=== PATIENT | female | born 1945 | race Caucasian/White ===

== ENCOUNTER 2021-01-01 10:38 | Outpatient (CLI) | payer MEDICARE, SELFPAY ==
--- NOTE | 2021-01-01 09:15 | DI.RAD_ITS ---
Exam(s) XR HIP LT COMPLETE AP PELVIS EXAM: XR HIP LT COMPLETE AP PELVIS CLINICAL HISTORY: left hip pain. TECHNIQUE: 2D digital imaging was performed. COMPARISON: No exams were available for comparison FINDINGS: BONES: No acute fracture is present. No bony destructive lesion is seen. JOINTS: No dislocation present. Degenerative changes are seen at the sacroiliac joints. There is mi ld narrowing of the joint space of the left hip. Marked degenerative changes are seen in the lower l umbar spine with disc space narrowing, osteophytes and vacuum discs. SOFT TISSUE: Atherosclerosis. IMPRESSION: 1. Mild narrowing of the hip joints bilaterally. 2. Marked degenerative changes in the lumbar spine. DATA REPOSITORY: RADIATION DOSE DELIVERED:
== END 2021-01-01 10:39 | disposition home or self-care (01) ==
LOC: DIORS 10:38
PROVIDERS: PCP Family Medicine; Referring Provider Family Medicine; Visit Provider Student in an Organized Health Care Education/Training Program
DX: M25.552 Pain in left hip (principal); M70.62 Trochanteric bursitis, left hip; M16.12 Unilateral primary osteoarthritis, left hip
CPT/HCPCS: 20610; 99203; 73502; J1040

== ENCOUNTER → 2021-02-18 01:38 | Outpatient (CLI) | payer MEDICARE, SELFPAY ==
--- NOTE | 2021-02-18 08:15 | DI.RAD_ITS ---
Exam(s) RF JOINT INJECTION FLUORO GUID EXAM: RF JOINT INJECTION FLUORO GUID CLINICAL HISTORY: l hip inj under fluoro,degenerative joint disease,m16.12,m70.62,lt TECHNIQUE: 2D and realtime digital imaging was performed. CONTRAST MATERIAL: Water soluble contrast was administered. COMPARISON: No exams were available for comparison FINDINGS: Fluoroscopy was provided for Dr. Early during the performance of a left hip injection. Please re landen to the procedure report for complete details. RADIATION DOSE DELIVERED: winnie Gunderson=11.5 mGy
[2021-02-18] MEDS: Bupivacaine 0.5% Pres-Free 10 ML VIAL 50 ML IJ (14:59)
[2021-02-18] MEDS: Omnipaque 300 MG/ML 10 ML BTL IJ (14:59)
[2021-02-18] MEDS: methylPREDNISolone ACETATE 80 MG/ML VIAL IM (15:01)
--- NOTE | 2021-02-18 16:06 | W.PROCNOTE ---
Date of service: 02/18/21 Time of Service: 13:22 Procedure Note Date of procedure: 02/18/21 Procedure: Left Hip Injection Surgeon/Proceduralist/Physician: Carlos Early Procedure Diagnosis: Left Hip Osteoarthritis Procedure Indications: Martha has had persistent pain of the LEFT hip and groin. Noninvasive measures have been tried. To serve as both diagnostic and therapeutic, an injection under fluoroscopy was recommended. I had discussed the risks of the procedure and the patient elected to proceed. Procedure Description: Martha was greeted in the flouroscopy room. The correct side was identified and the consent was reviewed with the patient and signed. The patient was then placed in the supine position on the fluoroscopy table. The LEFT hip was then prepped with Chloraprep. The anterolateral injection starting point was identiifed by bony landmarks and fluoroscopy. The skin and soft tissue in the tract of the injection was anesthetized with 1% Lidocaine. A spinal needle was then inserted deep into the hip joint at the level of the lateral femoral neck under fluoroscopic guidance. A small amount of Omnipaque solution was injected to confirm intraarticular placement. Once confirmed, the hip was injected with 6cc of 0.5% Bupivicaine and 80mg of Depo-Medrol. A bandaid was placed on the injection site. The patient tolerated the procedure well and noted improvement in pre-injection pain.
== END ==
PROVIDERS: PCP Family Medicine; Visit Provider Student in an Organized Health Care Education/Training Program
DX: M16.12 Unilateral primary osteoarthritis, left hip (principal); M25.552 Pain in left hip; R10.32 Left lower quadrant pain
CPT/HCPCS: 20610; 77002; J1040

== ENCOUNTER → 2021-04-05 01:24 | Outpatient (CLI) | payer MEDICARE, SELFPAY ==
--- NOTE | 2021-04-05 06:45 | DI.MRI_ITS ---
Exam(s) MR LOWER JOINT LT WO EXAM: MR LOWER JOINT LT WO CLINICAL HISTORY: PAIN,djd lt hip,trochanteric bursitis,m16.12,m70.72 TECHNIQUE: Multiplanar multisequence MRI of Pelvis was performed COMPARISON: CR XR HIP LT COMPLETE AP PELVIS from 01/01/2021 FINDINGS: Bones: There is no fracture or contusion pattern. No bone marrow edema is seen. Joints: Small normal quantity of joint fluid bilaterally. The SI joints and symphysis pubis are well maintained. Musculotendinous structures: Fluid around the gluteus medius tendon. Fluid superior to the greater t rochanter. Small full collection lateral to the left acetabulum, measuring 8 x 14 millimeters. Severe degenerative disc changes L4-5 and L5-S1. Sigmoid diverticulosis. Bladder, uterus and ovaries unremarkable. IMPRESSION: Partial tear versus tendinitis of the gluteus medius. Trochanteric bursitis. Additional fluid colle ction lateral to the acetabulum. DATA REPOSITORY:
== END ==
PROVIDERS: PCP Family Medicine; Visit Provider Student in an Organized Health Care Education/Training Program
DX: M16.12 Unilateral primary osteoarthritis, left hip (principal); M70.62 Trochanteric bursitis, left hip
CPT/HCPCS: 73721

== ENCOUNTER → 2021-04-21 14:57 | Outpatient (BNVA) | payer MEDICARE, SELFPAY | PROVIDERS: PCP Family Medicine; Referring Provider Family Medicine; Visit Provider Student in an Organized Health Care Education/Training Program | DX: M70.62 Trochanteric bursitis, left hip (principal); S76.012D Strain of muscle, fascia and tendon of left hip, subsequent encounter; X58.XXXD Exposure to other specified factors, subsequent encounter; M16.12 Unilateral primary osteoarthritis, left hip | CPT/HCPCS: 99214 ==

== ENCOUNTER 2021-05-26 02:58 | Outpatient (CLI) | payer MEDICARE, SELFPAY ==
[2021-05-26 11:46] LABS: Source Nasal/Nares
[2021-05-26 15:16] LABS: COVID-19 PCR Negative (Negative)
== END 2021-05-26 02:59 | disposition home or self-care (01) ==
LOC: LBO 02:58
PROVIDERS: PCP Family Medicine; Visit Provider Student in an Organized Health Care Education/Training Program
DX: Z20.822 Contact with and (suspected) exposure to COVID-19 (principal)
CPT/HCPCS: 87635

== ENCOUNTER 2021-05-28 06:29 | Day surgery (SDC) | payer MEDICARE, SELFPAY ==
[2021-05-28] VITALS (8 sets, daily range): BP systolic 120–150; BP diastolic 60–87; PULSE 64–77; RESP 15–23; TEMP 36.2–36.6; O2SAT 94–99; BMI 24.5
--- NOTE | 2021-05-28 06:52 | W.ANESPRE ---
General Info Date of Service Date Performed: 05/28/21 Height: 5 ft 4 in Weight: 64.9 kg Body Mass Index (BMI): 24.5 Surgical Procedure: Operation Date: 05/28/21 08:05 Proposed Procedures Side Surgeon p Endoscopic Gluteal Tendon Repair w/ Trochanteric Bursectomy Left Kt Vela MD Meds Allergies and Home Medications Allergies Allergy/AdvReac Type Severity Reaction Status Date / Time prednisone AdvReac Intermediate nausea, Verified 05/28/21 06:35 sweats, chills, eye pain Home Medication Medication Instructions Recorded ibuprofen 200 - 400 mg PO Q4H PRN tab-cap 09/01/15 Current Visit Medications: Current Medications Generic Name Dose Route Start Last Admin Trade Name Freq PRN Reason Stop Dose Admin Ringer's Solution 1,000 mls @ 100 mls/hr 05/28/21 06:00 IV 06/14/21 23:59 INFUSION RENA Cefazolin Sodium/Dextrose 2 gm in 50 mls @ 100 mls/hr 05/28/21 06:00 Ancef Duplex IVPB 05/28/21 16:00 PREOP RENA IV Miscellaneous Supplies 1 each 05/28/21 06:00 Iv Access IV 06/14/21 23:59 DIRECTED RENA Sodium Chloride 0 ml 05/28/21 06:00 Normal Saline Flush 10 Ml Syr IV 06/14/21 23:59 PRN PRN Sodium Chloride 0 ml 05/28/21 06:00 Normal Saline 10 Ml Vial IJ 06/14/21 23:59 DIRECTED PRN Sterile Water 0 ml 05/28/21 06:00 Water,Injection,Sterile 10 Ml Vial IJ 06/14/21 23:59 DIRECTED PRN PFSH Active Problems Active Problems: Problem Status Onset Code Trochanteric bursitis, left hip M70.62 Degenerative joint disease of left hip M16.12 Tear of left gluteus medius tendon S76.012A Surgical History Surgical History (Updated 05/28/21 @ 06:34 by Joo Krer) Appendectomy (~1949) Hx of bilateral cataract extraction Rotator Cuff Repair (08/01/14) Right Status post left rotator cuff repair (08/17/15) Open repair of full-thickness rotator cuff repair; biceps tenodesis; distal clavicle excision Tonsillectomy (~1965) Tobacco Smoking/Tobacco Use Status: Former Tobacco Use Alcohol Alcohol Intake: never Substance Use Substance use: Never Substance use type: does not use Vital Signs and Lab Results Vital Signs Most Recent Vital Signs in EMR: Most Recent Vital Signs Temp Pulse Resp BP Pulse Ox 36.6 C 73 16 146/67 H 98 05/28/21 06:36 05/28/21 06:36 05/28/21 06:36 05/28/21 06:36 05/28/21 06:36 Lab Results Blood Type / Crossmatch: No Data to Display Complete Blood Count: No Data to Display Complete Metabolic Panel: No Data to Display Liver Function Panel: No Data to Display Coagulation Panel: No Data to Display Cardiac Panel: No Data to Display Arterial Blood Gas: No Data to Display Venous Blood Gas: No Data to Display Pancreas Panel: No Data to Display Thyroid Panel: No Data to Display Infectious Disease: Coronavirus (COVID-19)(PCR) Negative (Negative) 05/26/21 08:41 05/26/21 Coronavirus 2019 Source Nasal/Nares 05/26/21 08:41 05/26/21 Blood Cultures: No Data to Display Toxicology Panel: No Data to Display Anesthesia Assessment and Plan Anesthesia History Personal History: No History of Anesthesia Complications Family History: No Family History of Anesthesia Complications Exercise Tolerance Exercise Tolerance: Metabolic Equivalents>4 Cardiac & Pulmonary Exam Cardiac Exam: Normal S1/S2 Heart Sounds Pulmonary Exam: Clear Bilateral Breath Sounds Implantable Cardiac Device Does patient have a Pacemaker or an ICD?: No Airway Exam Known Difficult Airway: No Mallampati Class: 2 Mouth Opening: Narrow (< 3cm) Thyromental Distance: Less than 3 cm Neck Range of Motion: Full ROM and Limited ROM Neck Circumference: Normal Teeth Condition: Edentulous ASA Classification ASA Score: ASA 2 Emergency Case?: No NPO Status NPO Status: NPO Clears >2 hours, Solids >8 hours Anesthesia Plan Resuscitation Status: Full Code Anesthesia Technique: General Anesthesia Airway Planned: Endotracheal Tube Monitors Used: Standard Monitors Preoperative Comments:: 75 yo female for left hip pain/gluteal tendon tear. Sig PMHx: former smoker, never EtOH, denies sig PMHx. Previous Anes: joel 2 grade 1, easy mask.
[2021-05-28] MEDS: Lactated Ringers 1,000 ML 100 ML IV (07:03)
[2021-05-28] MEDS: ceFAZolin 2 GM/50 ML BAG IVPB (08:24)
[2021-05-28] MEDS: EPINEPHrine 30 MG/30 ML VIAL (09:03)
--- NOTE | 2021-05-28 09:30 | DI.RAD_ITS ---
Exam(s) XR HIP LT IN OR EXAM: XR HIP LT IN OR CLINICAL HISTORY: Trochanteric bursitis, left hip. TECHNIQUE: 2D digital imaging was performed. COMPARISON: No exams were available for comparison FINDINGS: Intraoperative fluoroscopy provided during procedure on left hip trochanteric bursa region. Submitted C-arm images reveal surgical instruments in the region of the greater trochanter. IMPRESSION: As above. Total fluoroscopy time 11.4 seconds Cumulative dose 1.15mGy mg DATA REPOSITORY: RADIATION DOSE DELIVERED:
--- NOTE | 2021-05-28 09:45 | ROE_ITS ---
Date of service: 05/28/21 Time of Service: 09:41 Operative Note Operative Note DATE OF PROCEDURE: 05/28/21 PRE-OP DIAGNOSIS: Left 1. Gluteal tendon tear 2. Trochanteric bursitis POST-OP DIAGNOSIS: same PROCEDURE: Left hip endoscopic iliotibial band release (CPT# 36753) and trochanteric bursectomy (CPT# 61015) SURGEON: Kt Vela WATER FILTER CLEANER: Michela Leos ANESTHESIA TYPE: Local By Surgeon and General LMA/ETT Refer to Anesthesia Record ESTIMATED BLOOD LOSS: 5 COMPLICATIONS: None Patient was transported to: PACU Patient's condition: stable Indications: Please see complete medical record for details. Findings: Abundant, inflamed trochanteric bursitis. No significant gluteal tendon tear Procedure Description: In the operating room, general anesthesia was induced. The patient was positioned supine on the [facility] operating room table. All bony prominences were well-padded. Preoperative antibiotics were administered. The hip was prepped and draped in the usual sterile fashion. The correct patient, procedure, and side of the procedure were all verified prior to incision. 20cc 0.5% bupivacaine containing epinephrine was infiltrated about the subcutaneous tissues for the planned anterior lateral and distal anterolateral portals as well as deeply over the greater trochanter. A knife was used to incise the skin for the anterior lateral and distal anterolateral portals followed by blunt dissection subcutaneously. Under fluoroscopic guidance, a switching stick and arthroscope were inserted localizing the iliotibial band over the greater trochanter. Blunt dissection and the mechanical shaver were used to resect fat and overlying tissue about the center of the iliotibial band and carefully expose the anterior and posterior margins. The radiofrequency ablator was brought in and used to create a 2 cm longitudinal incision in line with the IT band fibers as well as extending it in a cruciate fashion with 2 cm incisions anteriorly and posteriorly. The ablator and mechanical shaver were then used to debride the IT band released edges exposing the trochanteric bursa. The mechanical shaver was then used to excise the trochanteric bursa taking care to protect musculature about the margins of the greater trochanter as well as neurovascular structures especially posteriorly. The radiofrequency ablator was used to achieve hemostasis. There was excellent visualization of the vastus lateralis as well as gluteus medius confirming appropriate bursa excision. The hip was brought through range of motion including internal and external rotation and there was no impinging iliotibial band tissue or remaining pathologic bursa. The viewing and working portals were switched and appropriate IT band release, trochanteric bursa excision, and hemostasis confirmed. There was slight hypermobility of the glue medius minimus junction anteriorly, but no visible or significant tear of the glue medius and good tendon fixation to greater trochanter. Decision was made to omit any partial gluteal tendon repair and resulting postoperative restrictions weightbearing precautions. Suction was used to remove fluid from the endoscopic space. The portals were closed using 3-0 Monocryl in a buried fashion. Steri-Strips were applied over the incisions followed by Xeroform, 4 x 4 gauze, an ABD pad, and secured with tape. The patient awoke from anesthesia without complication and was transferred to the recovery room in a stable condition.
--- NOTE | 2021-05-28 09:48 | PDOC.DSDIS_ITS ---
Discharge Plan Disposition Patient Disposition: HOME Condition: Stable Discharge Details Reason For Visit: Left hip surgery Attending Provider: Kt Vela Primary Care Provider: Liane Parada Home Meds and New Rx's Prescriptions: New naproxen 250 mg tablet 250 - 500 mg PO BID PRNQty: 40 RF: 0 aspirin 81 mg tablet,delayed release (DR/EC) 81 mg PO DAILY 14 Days Qty: 14 RF: 0 tramadol 50 mg Tablet 50 mg PO Q8H PRN PRN (Reason: severe pain) Qty: 5 RF: 0 Discontinued ibuprofen 200 MG capsule 200 - 400 mg PO Q4H PRN RF: 0 Discharge Instructions Additional Instructions: Surgery: Left hip endoscopy with iliotibial band release and trochanteric bursectomy. No gluteal tendon repair. Activity: Weightbearing as tolerated. May use walker if needed for a few days. Gradually advance to full range of motion and activity over the next few weeks. A physical therapy prescription will be sent electronically to begin in a few weeks. Prescriptions: Aspirin 81 mg take 1 daily to prevent a blood clot for 2 weeks Naproxen 250 mg take 1-2 every 12 hours with a meal as needed for moderate pain Tramadol 50 mg take 1 every 8 hours as needed for severe pain You may use [id number] Tylenol (acetaminophen) as needed for mild pain. These pain medications may be taken all at once or in different combinations as needed. Also, recommend Colace (docusate) as a stool softener as surgery and pain medicine cause constipation. Dressings: Leave dressing in place for 5 days. May then remove and leave open to air or cover incisions with Band-Aids. May shower after 7 days. Follow-up: 10-[address] Vela Let us know right away if you develop any redness, drainage, fevers, chest pain, or trouble breathing. Do not drink alcohol or drive for at least 24 hours after anesthesia. Please call the office during business hours with any questions or concerns. Referrals: Kt Vela MD [ [facility] STAFF PHYSICIAN] - Discharge Orders Discharge Orders: Discharge Order (Routine); Ordered 05/28/21 Ordered By: Kt Vela DS: Diagnosis Discharge Diagnosis (1) Trochanteric bursitis, left hip: Status: Acute (2) Tear of left gluteus medius tendon: Status: Acute
[2021-05-28] MEDS: fentaNYL 100 MCG/2 ML VIAL IVP (09:53)
--- NOTE | 2021-05-28 10:22 | W.ANESPOSTOP ---
Postoperative Evaluation Date, Time and Location Date Performed: 05/28/21 Time Performed: : Patient Location: PACU Vital Signs Most Recent Imported Vital Signs: Most Recent Vital Signs Temp Pulse Resp BP Pulse Ox 36.2 C L 64 15 120/76 99 05/28/21 10:10 05/28/21 10:10 05/28/21 10:10 05/28/21 10:10 05/28/21 10:10 Pain Score Most Recent Pain Score: Most Recent Pain Score Pain Level 3 05/28/21 10:10 Assessment Mental Status: Awake (Alert & Oriented to Patient Baseline) Airway and Respiratory Function: Patent airway with normal (patient baseline) respiratory exam Cardiovascular Function: Hemodynamically Stable Hydration Status: Adequately Hydrated Nausea & Vomiting: No Nausea or Vomiting Pain: Pain is tolerable per patient Peripheral Nerve Block: Patient did not receive a nerve block
== END 2021-05-28 11:50 | disposition home or self-care (01) ==
PROVIDERS: PCP Family Medicine; Visit Provider Student in an Organized Health Care Education/Training Program
PROC: (CPT 29863; principal; 2021-05-28 07:45)
DX: M70.62 Trochanteric bursitis, left hip (principal); S76.012A Strain of muscle, fascia and tendon of left hip, initial encounter; M16.12 Unilateral primary osteoarthritis, left hip; X58.XXXA Exposure to other specified factors, initial encounter
CPT/HCPCS: 27062; 27305; 73501; J0690; J1100; J2001; J2405; J3010

== ENCOUNTER → 2021-06-09 08:41 | Outpatient (BNVA) | payer MEDICARE, SELFPAY | PROVIDERS: PCP Family Medicine; Referring Provider Family Medicine; Visit Provider Student in an Organized Health Care Education/Training Program | DX: Z47.89 Encounter for other orthopedic aftercare (principal); M70.62 Trochanteric bursitis, left hip ==

== ENCOUNTER → 2021-08-04 07:55 | Outpatient (BNVA) | payer MEDICARE, SELFPAY | PROVIDERS: PCP Family Medicine; Referring Provider Family Medicine; Visit Provider Student in an Organized Health Care Education/Training Program | DX: M70.62 Trochanteric bursitis, left hip (principal) ==

== ENCOUNTER → 2021-10-05 07:53 | Outpatient (BNVA) | payer MEDICARE, SELFPAY | PROVIDERS: PCP Family Medicine; Referring Provider Family Medicine; Visit Provider Student in an Organized Health Care Education/Training Program | DX: X58.XXXA Exposure to other specified factors, initial encounter (principal); S76.012A Strain of muscle, fascia and tendon of left hip, initial encounter; M70.62 Trochanteric bursitis, left hip | CPT/HCPCS: 99213 ==

== ENCOUNTER → 2022-01-26 08:00 | Outpatient (BNVA) | payer MEDICARE, SELFPAY | PROVIDERS: PCP Family Medicine; Referring Provider Family Medicine; Visit Provider Student in an Organized Health Care Education/Training Program | DX: X58.XXXA Exposure to other specified factors, initial encounter (principal); S76.012A Strain of muscle, fascia and tendon of left hip, initial encounter; M70.62 Trochanteric bursitis, left hip | CPT/HCPCS: 99213 ==

== ENCOUNTER 2022-05-25 09:49 | Outpatient (CLI) | payer MEDICARE, SELFPAY ==
--- NOTE | 2022-05-25 09:15 | DI.RAD_ITS ---
Exam(s) XR HIP LT AP LAT ONLY EXAM: XR HIP LT AP LAT ONLY CLINICAL HISTORY: left hip f/u. TECHNIQUE: 2D digital imaging was performed. Two views. COMPARISON: MR MR LOWER JOINT LT WO from 04/05/2021 FINDINGS: BONES: No acute fracture is present. No bony destructive lesion is seen. Mild spurring at the great er and lesser trochanters. JOINTS: No dislocation present. Mild spurring at the acetabulum. Hip joint spaces maintained. SOFT TISSUE: Normal. IMPRESSION: Mild degenerative changes. DATA REPOSITORY: RADIATION DOSE DELIVERED:
== END 2022-05-25 09:50 | disposition home or self-care (01) ==
LOC: DIORS 09:50
PROVIDERS: PCP Family Medicine; Referring Provider Family Medicine; Visit Provider Student in an Organized Health Care Education/Training Program
DX: M70.62 Trochanteric bursitis, left hip (principal); S76.012D Strain of muscle, fascia and tendon of left hip, subsequent encounter; X58.XXXD Exposure to other specified factors, subsequent encounter
CPT/HCPCS: 99213; 73502

== ENCOUNTER → 2022-10-05 13:21 | Outpatient (BNVA) | payer MEDICARE, SELFPAY | PROVIDERS: PCP Family Medicine; Referring Provider Family Medicine; Visit Provider Student in an Organized Health Care Education/Training Program | DX: M70.62 Trochanteric bursitis, left hip (principal); S76.012D Strain of muscle, fascia and tendon of left hip, subsequent encounter; X58.XXXD Exposure to other specified factors, subsequent encounter | CPT/HCPCS: 99213 ==

== ENCOUNTER 2023-09-05 11:30 | Outpatient (CLI) | payer OTHER, SELFPAY ==
--- NOTE | 2023-09-05 11:24 | DI.RAD_ITS ---
Exam(s) XR SHOULDER RT COMPLETE 2+V EXAM: XR SHOULDER RT COMPLETE 2+V CLINICAL HISTORY: RIGHT SHOULDER PAIN. TECHNIQUE: 2D digital imaging was performed of the right shoulder. Three images were obtained. Axi llary and Grashey views were obtained. COMPARISON: CR RIGHT SHOULDER 1 VIEW from 09/16/2014 FINDINGS: BONES: No acute fracture is present. No bony destructive lesion is seen. Orthopedic anchors are seen in the humeral head. The bones are osteopenic. JOINTS: No dislocation present. Mild degenerative changes are seen at the acromion. The glenohumeral joint is well maintained. SOFT TISSUE: Normal. IMPRESSION: Mild arthrosis of the shoulder. DATA REPOSITORY: RADIATION DOSE DELIVERED:
== END 2023-09-05 11:31 | disposition home or self-care (01) ==
LOC: DIORS 11:31
PROVIDERS: PCP Family Medicine; Visit Provider Student in an Organized Health Care Education/Training Program
DX: M25.511 Pain in right shoulder (principal)
CPT/HCPCS: 73030

== ENCOUNTER → 2023-11-14 01:52 | Outpatient (CLI) | payer OTHER, SELFPAY ==
--- NOTE | 2023-11-14 07:15 | DI.MRI_ITS ---
Exam(s) MR UPPER JOINT RT WO EXAM: MR UPPER JOINT RT WO CLINICAL HISTORY: R SHOULDER PAIN,rt rotator cuff tear,m75.101 TECHNIQUE: Multiplanar multisequence MRI of the shoulder was performed. COMPARISON: CR XR SHOULDER RT COMPLETE 2+V from 09/05/2023 FINDINGS: MARROW:There are 2 artifact producing intraosseous fasteners in the anterior aspect of the humeral he ad at the lesser tuberosity level. There is also susceptibility artifact along the course of prior i nstrumentation. ROTATOR CUFF MECHANISM: AC JOINT/ACROMIUM: There has been surgical widening of the AC joint space. No obvious impingement at this level.. There is no evidence of os acromiale. Supraspinatus: There is some increased signal seen within the supraspinatus tendon just above the gre ater tuberosity although this may be exaggerated by the artifact from adjacent anchor devices. May r epresent partial tearing. There is no retraction of the muscular tendinous junction. Mild atrophy. There is no significant fluid in the subacromial-subdeltoid bursa. Infraspinatus: Mild insertional tendinitis. No high-grade tear. No atrophy. Teres Minor: Intact. No evidence of tear nor muscle atrophy. Subscapularis/anterior cuff: Partially obscured by artifact related to the to anteriorly located anch ors. Difficult to assess accurately. No abnormal signal in the coracoid process. BICEPS TENDON: Also somewhat obscured by artifact from the 2 anterior anchor devices. Intra-articula r aspect of the biceps tendon appears most probably altered. The tendon is not seen attached to the anterosuperior labrum. The fasteners may also be related to biceps tenodesis. LABRUM: There is some blunting of the superior labrum. Posterior labrum appears intact. Some regula rity of the anterior labrum above the midline noted consistent with element of tearing. Inferior lab rum appears intact. Inferior glenohumeral ligament appears intact. GLENOHUMERAL JOINT: Mild thinning of the articular cartilage. No joint effusion evident. No loose i ntra-articular bodies. No osteophytes. No degenerative subarticular cysts. QUADRILATERAL SPACE: No evidence of mass in the region of the axillary nerve and dorsal circumflex hu meral vessels. Visualized triceps muscle at this level appears unremarkable. IMPRESSION: 1. Interpret somewhat limited anteriorly due to artifact produced by the 2 anterior anchor fastener d evices. These may be related to biceps tenodesis at the level the lesser tuberosity. There is also been surgical widening of the AC joint. 2. Some increased signal noted within the supraspinatus tendon just above the greater tuberosity. Th ere does not appear to be a full-thickness tear. 3. Subscapularis-anterior cuff tendon is difficult to assess because of the amount of artifact. 4. Intra-articular aspect of the biceps tendon between the fastener devices and the anterosuperior l abrum is not seen and presumed to be surgically absent. 5. There is irregularity of the anterior labrum above the midline consistent with an element of tear ing. There is some blunting of the superior labrum which may be post surgical. DATA REPOSITORY:
== END ==
PROVIDERS: PCP Family Medicine; Visit Provider Student in an Organized Health Care Education/Training Program
DX: M75.101 Unspecified rotator cuff tear or rupture of right shoulder, not specified as traumatic (principal)
CPT/HCPCS: 73221

== ENCOUNTER → 2024-01-30 12:57 | Outpatient (BNVA) | payer OTHER, SELFPAY | PROVIDERS: PCP Family Medicine; Referring Provider Family Medicine; Visit Provider Student in an Organized Health Care Education/Training Program | DX: M12.811 Other specific arthropathies, not elsewhere classified, right shoulder (principal) ==

== ENCOUNTER 2024-03-01 06:05 | Day surgery (SDC) | payer OTHER, MEDICARE, SELFPAY ==
[2024-03-01] VITALS (8 sets, daily range): BP systolic 92–164; BP diastolic 50–88; PULSE 64–71; RESP 14–20; TEMP 35.8–36.6; O2SAT 92–98; BMI 25.0
[2024-03-01] MEDS: Lactated Ringers 1,000 ML 30 ML IV (06:33)
--- NOTE | 2024-03-01 07:08 | PDOC.DSDIS_ITS ---
Date of service: 03/01/24 Time of Service: 14:00 Discharge Plan Disposition Patient Disposition: Home Condition: Stable Discharge Details Attending Provider: Kt Vela Primary Care Provider: Liane Parada Home Meds and New Rx's Prescriptions: New naproxen 250 mg tablet 250 mg PO BID PRN (Reason: Moderate pain) Qty: 30 0RF tramadol 50 mg tablet 50 mg PO TID PRNQty: 7 0RF Discharge Instructions Additional Instructions: Surgery: Right reverse total shoulder arthroplasty (constrained liner) with biceps tenodesis and removal of hardware Activity: Do not lift anything heavier than a coffee. You should keep your arm at your side in a relatively neutral position at all times except for gentle range of motion exercises, physical therapy, and essential activities. You should use the sling whenever you are out of the house. At home it is best to remove the sling and rest the arm on a pillow at your side or support the operative side with your other hand. A physical therapy prescription will be sent electronically to start in about 3 weeks. STANDARD Reverse TSA Protocol. Prescriptions: Naproxen 250 mg take 1 every 12 hours with a meal as needed for moderate pain Tramadol 50 mg take 1 every 8 hours as needed for severe pain You may use [id number] Tylenol (acetaminophen) as needed for mild pain. These pain medications may be taken all at once or in different combinations as needed. Also, recommend Colace (docusate) as a stool softener as surgery and pain med icine cause constipation. You may try [id number] diphenhydramine (Benadryl) 25-50 mg nightly as a sleep aid Dressings: Leave dressing in place until follow-up. Keep clean and dry at all times. No showers please. Follow-up: 10-[address] Vela You may take off the leg compression stockings this evening at home. You may also leave them on a few days longer if you have a history of leg swelling or edema. Please call the office during business hours with any questions or concerns. Let us know right away if you develop any redness, drainage, fevers, chest pain, or trouble breathing. Do not drink alcohol or drive for at least 24 hours after anesthesia. Stand Alone Forms: Anesthesia Discharge Inst., Anes.Nerve Block Instructions, [place] ([facility]) Discharge Orders Discharge Orders: Discharge Order (Routine); Ordered 03/01/24 Ordered By: Jorge L Flaherty Discharge Data Discharge Date/Time-TO BE ENTERED AT DEPARTURE: 03/01/24 12:57 DS: Diagnosis Discharge Diagnosis (1) Rotator cuff arthropathy of right shoulder: Status: Acute
--- NOTE | 2024-03-01 07:08 | W.ANESPRE ---
General Info Date of Service Date Performed: 03/01/24 Height: 5 ft 4 in Weight: 66.3 kg Body Mass Index (BMI): 25.0 Surgical Procedure: Operation Date: 03/01/24 07:40 Proposed Procedure Side Surgeon p Shoulder Reverse Total Arthroplasty, Possible Biceps Tenodesis and any other indicated procedures including Hardware Removal Right Kt Vela MD Meds Allergies and Home Medications Allergies Allergy/AdvReac Type Severity Reaction Status Date / Time prednisone AdvReac Intermediate nausea, Verified 03/01/24 06:22 sweats, chills, eye pain Home Medication ?Medication ?Instructions ?Recorded Unknown [No Known Home Meds] 08/04/21 Current Visit Medications: Current Medications Generic Name Dose Route Start Last Admin Trade Name Freq PRN Reason Stop Dose Admin Droperidol 0.625 mg 03/01/24 06:35 Droperidol 5 Mg/2 Ml Vial IVP 03/31/24 06:34 DIRECTED PRN Nausea Ephedrine Sulfate 0 mg 03/01/24 06:35 Ephedrine 25 Mg/5 Ml Syringe IVP 03/31/24 06:34 DIRECTED PRN Fentanyl 0 mcg 03/01/24 06:35 Fentanyl 100 Mcg/2 Ml Vial IVP 03/31/24 06:34 DIRECTED PRN Hydromorphone HCl 0 mg 03/01/24 06:35 Hydromorphone 2 Mg/Ml Syr IVP 03/31/24 06:34 DIRECTED PRN Ringer's Solution 1,000 mls @ 30 mls/hr 03/01/24 06:00 03/01/24 06:33 IV 03/30/24 23:59 30 mls/hr INFUSION RENA Administration Cefazolin Sodium/Dextrose 2 gm in 50 mls @ 100 mls/hr 03/01/24 06:00 Ancef Duplex IVPB 03/30/24 23:59 PREOP RENA Tranexamic Acid/Sodium Chloride 1,000 mg in 100 mls @ 600 mls/hr 03/01/24 06:00 IVPB 03/30/24 23:59 PREOP RENA Cefazolin Sodium/Dextrose 1 gm in 50 mls @ 100 mls/hr 03/01/24 11:30 Ancef Duplex IVPB 03/01/24 11:59 ONCE ONE IV Miscellaneous Supplies 1 each 03/01/24 06:00 Iv Access IV 03/30/24 23:59 DIRECTED RENA Lactobacillus Acidophilus/Casei 1 cap 03/01/24 12:30 L. Acidophilus, Casei, Rhamnosus Cap PO 03/01/24 12:31 DAILY ONE Naloxone HCl 0 mg 03/01/24 06:35 Naloxone 0.4 Mg/Ml Vial IVP 03/31/24 06:34 PRN PRN Sodium Chloride 0 ml 03/01/24 06:00 Normal Saline Flush 10 Ml Syr IV 03/30/24 23:59 PRN PRN Sodium Chloride 0 ml 03/01/24 06:00 Normal Saline 10 Ml Vial IJ 03/30/24 23:59 DIRECTED PRN Sterile Water 0 ml 03/01/24 06:00 Water,Injection,Sterile 10 Ml Vial IJ 03/30/24 23:59 DIRECTED PRN Tramadol HCl 50 mg 03/01/24 07:05 Tramadol 50 Mg Tab PO 03/31/24 07:04 Q6H PRN PRN PFSH Active Problems Active Problems: Problem Status Onset Code Rotator cuff arthropathy of right shoulder Acute M12.811 Right rotator cuff tear Acute M75.101 Trochanteric bursitis, left hip Acute M70.62 Degenerative joint disease of left hip Acute M16.12 Tear of left gluteus medius tendon Acute S76.012A Surgical History Surgical History History of surgery on lower extremity Endoscopic gluteal tendon repair left leg Hx of bilateral cataract extraction Status post left rotator cuff repair (08/17/15) Open repair of full-thickness rotator cuff repair; biceps tenodesis; distal clavicle excision Tonsillectomy (~1965) Rotator Cuff Repair (08/01/14) Right Appendectomy (~1949) Tobacco Smoking/Tobacco Use Status: Former Tobacco Use Alcohol Alcohol Intake: never Substance Use Substance use: Never Substance use type: does not use Vital Signs and Lab Results Vital Signs Most Recent Vital Signs in EMR: Most Recent Vital Signs Temp Pulse Resp BP Pulse Ox 35.8 C L 70 16 162/88 H 98 03/01/24 06:10 03/01/24 06:10 03/01/24 06:10 03/01/24 06:10 03/01/24 06:10 Lab Results Blood Type / Crossmatch: No Data to Display Complete Blood Count: No Data to Display Complete Metabolic Panel: No Data to Display Liver Function Panel: No Data to Display Coagulation Panel: No Data to Display Cardiac Panel: No Data to Display Arterial Blood Gas: No Data to Display Venous Blood Gas: No Data to Display Pancreas Panel: No Data to Display Thyroid Panel: No Data to Display Infectious Disease: No Data to Display Blood Cultures: No Data to Display Toxicology Panel: No Data to Display Anesthesia Assessment and Plan Anesthesia History Personal History: No History of Anesthesia Complications Family History: No Family History of Anesthesia Complications Exercise Tolerance Exercise Tolerance: Metabolic Equivalents>4 Pertinent Negatives Pertinent Negatives: No Symptoms of GERD Cardiac & Pulmonary Exam Cardiac Exam: Normal S1/S2 Heart Sounds Pulmonary Exam: Clear Bilateral Breath Sounds Implantable Cardiac Device Does patient have a Pacemaker or an ICD?: No Airway Exam Known Difficult Airway: No Mallampati Class: 2 Mouth Opening: Narrow (< 3cm) Thyromental Distance: Less than 3 cm Neck Range of Motion: Full ROM and Limited ROM Neck Circumference: Normal Teeth Condition: Edentulous ASA Classification ASA Score: ASA 2 Emergency Case?: No NPO Status NPO Status: NPO Clears >2 hours, Solids >8 hours Anesthesia Plan Resuscitation Status: Full Code Anesthesia Technique: General Anesthesia Airway Planned: Endotracheal Tube Pain Management: Surgeon and patient request nerve block Monitors Used: Standard Monitors and SedLine
--- NOTE | 2024-03-01 07:24 | ROE_ITS ---
Date of service: 03/01/24 Time of Service: 07:30 Operative Note Operative Note DATE OF PROCEDURE: 03/01/24 PRE-OP DIAGNOSIS: Right: 1. Rotator cuff arthropathy 2. Long head of the biceps tendinopathy 3. Retained hardware POST-OP DIAGNOSIS: same PROCEDURE: Right: 1. Reverse total shoulder arthroplasty, CPT # 11610 2. Open biceps tenodesis, CPT # 60983 3. Removal of deep hardware, CPT #22273 The workforce development assistant was medically required as this procedure involves retraction, protection of neurovascular structures, and manipulation of multiple instruments and implants at the same time, which cannot be done without a skilled workforce development assistant. SURGEON: Kt Vela REPOSSESSION AGENT: Jorge L Flaherty ANESTHESIA TYPE: Local By Surgeon, General LMA/ETT and Primary Nerve Block Refer to Anesthesia Record ESTIMATED BLOOD LOSS: 75 COMPLICATIONS: None Patient was transported to: PACU Implants: [employer] modular glenoid system baseplate 24 mm +2 lat [employer] modular glenoid system central post 25 mm [employer] modular glenoid system peripheral locking screws 20 mm inferior, 32 mm superior, 16 mm posterior, 24 mm anterior [employer] modular glenoid system glenosphere 36 +4 mm lateralized [employer] humeral stem 135 degrees size 11 [employer] suture cup size 36 posterior offset [employer] humeral insert size 36+6 mm constrained Indications: Please see complete medical record for details. Findings: Full range of motion, remarkably little scarring and no adhesions from prior open rotator cuff surgery. Minimal biceps remnant intra-articular, probable pre-existing rupture and stuck in the bicipital groove. Obvious deficiency anterior supraspinatus and upper subscapularis with exposed metallic screw anchor. No signs of infection or other problem from prior surgery. Both metallic screws removed and all encountered permanent suture material from the subscapularis. Extremely thin cortical bone and soft cancellous bone. Only mild chondromalacia glenohumeral joint with labrum still relatively intact and no contracture. Procedure Description: In the operating room, general anesthesia was induced. The patient was positioned beachchair on the operating room table. All bony prominences were well-padded. Preoperative antibiotics were administered. The shoulder was prepped and draped in the usual sterile fashion for shoulder arthroplasty. The correct patient, procedure, and side of the procedure were all verified prior to incision. The deltopectoral approach was preinjected with 0.25% bupivacaine containing epinephrine and taken to the anterior shoulder. It was positioned slightly more medially to provide larger tissue bridge between it and the prior deltoid split incision. Care was taken to bluntly dissect the interval between the deltoid and pectoralis major muscles and to identify the cephalic vein within its fat stripe. There were about 3 smaller veins in the usual area of the cephalic vein, possibly due to prior open surgery. These veins were somewhat tenuous but mobilized laterally. Subdeltoid space and conjoined tendon were freed of bursitis and minimal adhesions. The biceps tendon was identified thin small remnant in the rotator interval intra-articular. There was no mobility of it near the bicipital groove so it was amputated. The supraspinatus was debrided to moderately present more posterior aspects. The subscapularis was then clearly torn from the prior suture anchor repair. The exposed metallic anchor was removed in entirety and placed into a specimen cup for the patient. Permanent suture material was also removed. The subscapularis tearing was readily released and then the remainder inferiorly largely released while bringing the arm into external rotation with some additional surgical release to complete the exposure. Appropriate coagulation was achieved especially inferiorly. The anatomic neck was cut using an oscillating saw with the humeral head bone brought back table in case there was a need for future bone grafting. Conservative cut was done given the soft bone quality. The proximal humerus was delivered from the wound with adduction and external rotation. The proximal humeral protection plate was used to provisionally confirm suture cup and glenosphere size. Reamers were started appropriately posterior to the bicipital groove taking care to maintain in line approach with the humeral canal. Sequential reaming was done from size 5 up to size 8. Next, the broaches were sequentially used to open the proximal humerus starting with a size 5 and going up to size 11 and sunk to the appropriate depth while maintaining approximately 25 degrees retroversion. The remaining deeper medical suture anchor was encountered and removed from inside the humerus in entirety. Before going up above size 8, the reamers were sent without twisting or reaming to confirm appropriate diaphyseal space. A larger size was easy to accommodate in the capacious proximal humerus and shaft due to the very thin cortical bone. There was good metaphyseal fit and rotational control of the proximal humerus with this size. The posterior offset guide was used to ream for the suture cup. Attention was then turned to the glenoid and retractors were placed and a circumferential release performed using the long head of the biceps remnant to remove soft tissue about the glenoid rim. Care was taken inferiorly to work on bone only between 5 and 7:00 o'clock and bluntly elevate tissues inferiorly. The VIP guide was placed on the glenoid and used to confirm placement and trajectory of the central guidepin. The guidepin was inserted and advanced just through the far cortex ensuring adequate central fixation length. The glenoid was prepared according to reinforcing steel machine operator specifications for a standard baseplate and central post. The baseplate was impacted onto the glenoid surface. The locking guide was then used to drill and place appropriately lengthed inferior, superior, anterior, and posterior screws. The [id number] reamer was used to confirm adequate peripheral reaming. The glenosphere was applied with the plant senior manager and then impacted to engage the Calhoun taper. It was then locked with appropriate countersinking of the setscrew. The glenosphere was inspected and found to have good fit, appropriate positioning, and no soft tissue or bony impingement. Attention was then turned back to the proximal humerus. The humeral trial cup was connected. Trialing was commenced with +3 mm liner. The shoulder was reduced and taken through range of motion. Trial components were built up to +6 mm liner to achieve good stability and appropriate tension on the deltoid and conjoined tension. The trial components were removed from the proximal humerus. The wound was copiously irrigated with normal saline. The the proximal humeral stem and suture cup were assembled and brought over the proximal humerus. A small amount of vancomycin powder was distributed in the proximal humerus. Although the proximal fit was excellent, given the capacious canal cancellous bone was harvested from the reamers and proximal humeral head cut. This bone was pressed around the proximal humerus and proximal diaphysis. The size 11 broach was then used to impact this graft into the prepared proximal humerus with excellent additional bone placed on maintaining the component position. The final humeral component and suture cup were impacted into place. The trial spacer was attached, and reduction confirmed to be similar really challenging with excellent stability. The final spacer was then connected, and range of motion, stability, and tension confirmed. Constrained chosen due to lack of subscapularis and deficient supraspinatus. The shoulder was copiously irrigated with Betadine and normal saline. Vancomycin powder was distributed deeply about the shoulder and through subcutaneous tissues. The deltopectoral interval was well approximated. Sub cutaneous tissue was irrigated then closed using 2-0 Monocryl in a buried interrupted fashion. Skin was closed using 3-0 Monocryl in a buried subcuticular fashion. Skin glue was applied to the incision. A silver impregnated bandage was placed over the incision. The extremity was placed into a shoulder immobilizer. The patient awoke from anesthesia without complication and was taken to the recovery room in stable condition.
[2024-03-01] MEDS: ceFAZolin 2 GM/50 ML BAG IVPB (07:50)
[2024-03-01] MEDS: TRANEXAMIC ACID/SOD. CHL. 1,000 MG/100 ML BAG 600 MG IVPB (08:00)
--- NOTE | 2024-03-01 08:12 | W.ANESNERVE ---
Nerve Block Single Injection Procedure Date and Time Date Performed: 03/01/24 Procedure Start: 07:17 Location Where Procedure Performed Procedure Location: Day Surgery Unit Reason Performed: Postoperative Analgesia Requesting Provider: Kt Vela Timeout Performed Timeout Performed: Yes Monitoring Used ECG, Blood Pressure, SpO2 and See EMR for corresponding vital signs Sterility Sterility: Hand Hygiene, Surgical Cap, Surgical Mask, Sterile Gloves, Sterile Drape/Sheet, Eye Protection and Chlorhexidine Sedation Given During Procedure Sedation Given (Indicate Dose Given): Versed IV Dose:: 1mg Patient Mental Status Patient Mental Status: Sedate with meaningful communication Nerve Block 1st Nerve Block: Laterality: Right Block Type: Interscalene Ultrasound Image Saved?: Yes Needle / Catheter Used: 100mm SonoPlex II Local Anesthetic Bolus (Indicate Dose Given): Lidocaine used for local infiltration of skin, Injected in 3-5ml increments after negative blood aspiration, Bupivacaine 0.5% Dose:: 0.5%/10cc (50mg) and Exparel Dose:: 1.33%/10cc (133mg) Additives (Indicate Dose Given): Epinephrine to make 1:200,000 (5mcg/ml) Dose:: 100mcg and Decadron Dose:: 10mg PF Ultrasound: Sterile probe cover and gel used Nerve Stimulator: Not Used Paresthesia: None Procedure Tolerated: Patient tolerated well Procedure Outcome: Successful Performed By: Avtar Sosa Supervised By: Brandon Gonzales
[2024-03-01] MEDS: Bupivacaine 0.25% Pres-Free W/EPI 30 ML VIAL (08:27)
--- NOTE | 2024-03-01 11:00 | DI.RAD_ITS ---
Exam(s) XR SHOULDER RT COMPLETE 2+V EXAM: XR SHOULDER RT COMPLETE 2+V CLINICAL HISTORY: Shoulder Arthritis. TECHNIQUE: 2D digital imaging was performed. COMPARISON: CR XR SHOULDER RT COMPLETE 2+V from 09/05/2023 FINDINGS: Two postop views There is satisfactory position alignment of the newly placed components of the reverse prosthesis. N o fracture or loosening evident. IMPRESSION: Satisfactory postop appearance DATA REPOSITORY: RADIATION DOSE DELIVERED:
--- NOTE | 2024-03-01 11:14 | W.ANESPOSTOP ---
Postoperative Evaluation Date, Time and Location Date Performed: 03/01/24 Time Performed: 11:15 Patient Location: Day Surgery Unit Vital Signs Most Recent Imported Vital Signs: Most Recent Vital Signs Temp Pulse Resp BP Pulse Ox 36.6 C 67 19 147/55 H 93 03/01/24 07:10 03/01/24 07:10 03/01/24 07:10 03/01/24 07:10 03/01/24 07:10 Pain Score Most Recent Pain Score: Most Recent Pain Score Pain Level 0 03/01/24 07:10 Assessment Mental Status: Awake (Alert & Oriented to Patient Baseline) Airway and Respiratory Function: Patent airway with normal (patient baseline) respiratory exam Cardiovascular Function: Hemodynamically Stable Hydration Status: Adequately Hydrated Nausea & Vomiting: No Nausea or Vomiting Pain: Pt. Denies Any Pain Peripheral Nerve Block: Regional nerve block not resolved at time of post operative discharge
[2024-03-01] MEDS: Lactobacillus Acidophilus CAP 1 CAP PO (12:06)
[2024-03-01] MEDS: ceFAZolin 1 GM/50 ML BAG IVPB (12:06)
== END 2024-03-01 12:57 | disposition home or self-care (01) ==
PROVIDERS: PCP Family Medicine; Visit Provider Student in an Organized Health Care Education/Training Program
PROC: (CPT 23472; principal; 2024-03-01 07:30)
DX: M12.811 Other specific arthropathies, not elsewhere classified, right shoulder (principal); M75.21 Bicipital tendinitis, right shoulder; Y99.0 Civilian activity done for income or pay; G89.18 Other acute postprocedural pain
CPT/HCPCS: 20680; 23472; 23430; C1713; 64415; 76942; 73030; C9290; J0131; J0171; J0665; J0690; J1100; J2250; J2371; J2405; J2704; J3370; J3475

== ENCOUNTER 2024-03-06 19:27 | Emergency (ER) | payer MEDICARE, SELFPAY ==
[2024-03-06] VITALS (7 sets, daily range): BP systolic 76–170; BP diastolic 48–137; PULSE 78–102; RESP 16–17; TEMP 36.6–36.9; O2SAT 92–94
[2024-03-06] MEDS: Normal Saline 1,000 ML 1000 ML IV (19:57)
--- NOTE | 2024-03-06 19:57 | ED.GENADUL_ITS ---
Discharge Plan Disposition Patient Disposition: Home Condition: Stable Discharge Details Clinical Impression: Diarrhea, Hypomagnesemia Primary Care Provider: Liane Parada ED Provider: Leonie Smith Home Meds and New Rx's Prescriptions: No Action naproxen 250 mg tablet 250 mg PO BID PRN (Reason: Moderate pain) Qty: 30 0RF tramadol 50 mg tablet 50 mg PO TID PRNQty: 7 0RF Discharge Instructions Instructions: Low Magnesium Level, Diarrhea, Adult ED Additional Instructions: Practice a BRAT diet, Bananas, Rice, Apples, [place] for the next 3 days. If diarrhea continues for more than 3-4 days you may take an immodium or similar over the counter remedy. Increase oral fluids and drink Gatorade or electrolyte solution while having diarrhea. At this time your electrolytes are mostly within normal limits your magnesium was slightly low however we did give you a magnesium supplement. Follow up with primary care provider in 3-5 days. Return to ED sooner if any worsening or concerns. Referrals: Liane Parada [Primary Care Provider] - 3 days HPI General Mode of arrival: wheelchair . Date/Time Provider Initiated Documentation: 03/06/24 19:40 . Limitations to Documentation: no limitations . Information obtained by: patient, RN notes reviewed and old records reviewed . HPI Narrative: 78-year-old female presents with chief complaint of diarrhea which began 9:00 last night. Patient recently had a right shoulder replacement on the . She reports intermittent lightheadedness. Upon initial presentation she does have low blood pressure of 76/48 heart rate of 102. She denies any fever chills abdominal pain any blood or mucus in her stool. She has been taking tramadol and naproxen. She reports that the tramadol has run out and she takes naproxen. She did not take it prior to arrival due to having an empty stomach. No other associated symptoms or concerns at this time. Related Data Home Medications ?Medication ?Instructions ?Recorded ?Confirmed naproxen 250 mg tablet 250 mg PO BID PRN Moderate pain 03/01/24 03/06/24 #30 tabs tramadol 50 mg tablet 50 mg PO TID PRN #7 tabs 03/01/24 03/06/24 Previous Rx's ?Medication ?Instructions ?Recorded naproxen 250 mg tablet 250 mg PO BID PRN Moderate pain 03/01/24 #30 tabs tramadol 50 mg tablet 50 mg PO TID PRN #7 tabs 03/01/24 Allergies Allergy/AdvReac Type Severity Reaction Status Date / Time prednisone AdvReac Intermediate nausea, Verified 03/06/24 19:41 sweats, chills, eye pain General Stated Complaint: Nausea/Vomit/Diar PHILL: 3 Review of Systems All systems reviewed & are unremarkable except as noted in HPI and below Gastrointestinal Gastrointestinal: Reports diarrhea Exam Narrative Exam Narrative: Constitutional: Alert and oriented x3. Appears stated age. Normal body habitus. Head: Normocephalic, no trauma. Eyes: Pupils PERRL, Red reflex noted, EOM's intact. Eyelids symmetrical without lesions, discharge, or swelling. Chest: RRR, Normal S1, S2, distal pulses intact. Resp: Lungs clear to auscultation bilaterally, no wheezes, rales, or rhonchi. Abdomen: Soft, non-distended, Normoactive bowel sounds all 4 quads. Musculoskeletal: Normal gait, Moves all 4 extremities without difficulty. Skin: Bruising noted to right upper extremity, postsurgery surrounding and noted. Capillary refill less than 2 sec. Neurologic: Cranial nerves II-XII intact. Alert and oriented x 3. Motor: No deficits noted. Sensory: Intact bilaterally all 4 extremities. Course Vital Signs Vital signs: Vital Signs Temperature 36.6 C 03/06/24 19:33 Pulse 102 H 03/06/24 19:33 Respiratory Rate 17 03/06/24 19:33 Blood Pressure 76/48 L 03/06/24 19:33 Pulse Oximetry 93 03/06/24 19:33 Temperature 36.9 C 03/06/24 19:50 Temperature Source Oral 03/06/24 19:50 Pulse 93 H 03/06/24 19:50 Respiratory Rate 16 03/06/24 19:50 Respiratory Effort Normal, Non-Labored 03/06/24 19:38 Blood Pressure 76/48 L 03/06/24 19:33 Blood Pressure Position Supine 03/06/24 19:50 Pulse Oximetry 93 03/06/24 19:50 Oxygen Delivery Method Room Air 03/06/24 19:50 Oxygen Flow Rate 0 03/06/24 19:33 Pain Level 6 03/06/24 19:50 Medical Decision Making 78-year-old female presents with chief complaint of diarrhea which began 9:00 last night. Patient recently had a right shoulder replacement on the . She reports intermittent lightheadedness. Upon initial presentation she does have low blood pressure of 76/48 heart rate of 102. She denies any fever chills abdominal pain any blood or mucus in her stool. She has been taking tramadol and naproxen. She reports that the tramadol has run out and she takes naproxen. She did not take it prior to arrival due to having an empty stomach. No other associated symptoms or concerns at this time. Workup ordered including CBC CMP lactate liter of normal saline. Patient's blood pressure is improved. Patient has given us urine after the liter of fluid, discussed lab results patient was given 4 mg magnesium oxide 4 magnesium level at 1.7, sodium potassium within normal limits. I did discuss a brat diet with patient over the next 2 to 3 days and increasing oral fluids including electrolyte fluids. Discussed strict return instructions and taking Imodium if continued diarrhea for the next 3 to 4 days. Instructed to return if any dizziness lightheadedness, fever chills vomiting or concerns. This text was generated using Wonder[employer] system, please disregard any oddities of phrase or misspellings. Medical Records Medical records reviewed: Yes I reviewed the patient's medical records. Lab Data Lab results reviewed: Yes I reviewed the patient's lab results. Labs: Laboratory Tests Range/Units 03/06/ 19:51 WBC (4.4-10.8) 10^3/uL 12.38 H RBC (3.93-5.22) 10^6/uL 4.85 Hgb (11.2-15.7) g/dL 14.4 Hct (36.0-46.0) % 43.1 MCV (80-95) fL 89 MCH (27.0-33.0) pg 29.7 MCHC (32.0-36.0) % 33.4 RDW (11.7-14.6) % 12.7 Plt Count (130-400) 10^3/uL 291 MPV (8.0-11.0) fL 9.2 Immature Gran % % 0.3 Neutrophils % % 79.1 Lymphocytes % % 11.9 Monocytes % % 6.5 Eosinophils % % 1.9 Basophils % % 0.3 Nucleated RBC % (0.0-0.3) % 0.0 Absolute Neutrophils (1.2-6.7) 10^3/uL 9.79 H Absolute Lymphocytes (1.2-3.4) 10^3/uL 1.47 Absolute Monocytes (0.1-0.8) 10^3/uL 0.80 Absolute Eosinophils (0.0-0.7) 10^3/uL 0.24 Absolute Basophils (0.0-0.2) 10^3/uL 0.04 VBG Lactate (0.6-1.4) mmol/L 1.0 Sodium (136-145) mmol/L 140 Potassium (3.5-5.1) mmol/L 3.8 Chloride (98-107) mmol/L 104 Carbon Dioxide (21.0-32.0) mmol/L 26.6 Anion Gap (3-11) mmol/L 9.4 BUN (7-18) mg/dL 16 Creatinine (0.55-1.02) mg/dL 0.8 Est GFR (CKD-EPI 2020) (mL/min/1.73m2) 74.44 Glucose (74-106) mg/dL 125 H Calcium (8.5-10.1) mg/dL 9.6 Magnesium (1.8-2.4) mg/dL 1.7 L Total Bilirubin (0.2-1.0) mg/dL 1.19 H AST (15-37) U/L 20 ALT (14-59) U/L 10 L Alkaline Phosphatase (46-116) U/L 105 Total Protein (6.4-8.2) g/dL 7.1 Albumin (3.4-5.0) g/dL 3.1 L Quality:SDOH Health Related Social Needs: No Data to Display PFSH All Active Problems (Updated 03/06/24 @ 21:08 by Leonie Smith NP) Hypomagnesemia (Acute) Diarrhea (Acute) Rotator cuff arthropathy of right shoulder (Acute) Right rotator cuff tear (Acute) Trochanteric bursitis, left hip (Acute) Injection: 01/01/2021 S/P left trochanteric bursectomy with IT band lengthenin05/28/2021 Degenerative joint disease of left hip (Acute) Tear of left gluteus medius tendon (Acute) Surgical History History of surgery on lower extremity Endoscopic gluteal tendon repair left leg Hx of bilateral cataract extraction Status post left rotator cuff repair (08/17/15) Open repair of full-thickness rotator cuff repair; biceps tenodesis; distal clavicle excision Tonsillectomy (~1964) Rotator Cuff Repair (08/01/14) Right Appendectomy (~1949) Social History Smoking/Tobacco Use Status: Former Tobacco Use Quit Date: 05/15/61 Smoking risk assessment performed?: Yes Alcohol Intake: never Drug use: Never Substance use type: does not use Housing: house Current gender identity: female Do you feel safe at home: Yes Do you feel safe in your relationship?: Yes
[2024-03-06 20:00] LABS: Abs Immature Grans 0.04 10^3/uL (0.0-0.06); Absolute Basophil Count 0.04 10^3/uL (0.0-0.2); Absolute Eosinophil Count 0.24 10^3/uL (0.0-0.7); Absolute Lymphocyte Count 1.47 10^3/uL (1.2-3.4); Absolute Neutrophil Count 9.79 10^3/uL (1.2-6.7); Basophils % 0.3 %; Eosinophils % 1.9 %; HCT 43.1 % (36.0-46.0); HGB 14.4 g/dL (11.2-15.7); Immature Grans % 0.3 %; Lymphocytes % 11.9 %; MCH 29.7 pg (27.0-33.0); MCHC 33.4 % (32.0-36.0); MCV 89 fL (80-95); MPV 9.2 fL (8.0-11.0); Monocytes % 6.5 %; Neutrophils % 79.1 %; Platelet Count 291 10^3/uL (130-400); RBC 4.85 10^6/uL (3.93-5.22); RDW 12.7 % (11.7-14.6); RDW-SD 41.1 fL; WBC 12.38 10^3/uL (4.4-10.8)
[2024-03-06 20:16] LABS: ALT 10 U/L (14-59); AST 20 U/L (15-37); Albumin 3.1 g/dL (3.4-5.0); Alkaline Phosphatase 105 U/L (46-116); Anion Gap 9.4 mmol/L (3-11); BUN 16 mg/dL (7-18); Bilirubin, Total 1.19 mg/dL (0.2-1.0); CO2 26.6 mmol/L (21.0-32.0); CREATININE 0.8 mg/dL (0.55-1.02); Calcium 9.6 mg/dL (8.5-10.1); Chloride 104 mmol/L (98-107); Estimated GFR 74.44 (mL/min/1.73m2); Glucose 125 mg/dL (74-106); Magnesium 1.7 mg/dL (1.8-2.4); Potassium 3.8 mmol/L (3.5-5.1); Sodium 140 mmol/L (136-145); Total Protein 7.1 g/dL (6.4-8.2)
[2024-03-06] MEDS: Magnesium Oxide 400 MG TAB PO (21:02)
== END 2024-03-06 21:18 | disposition home or self-care (01) ==
PROVIDERS: Emergency Provider Registered Nurse Emergency; PCP Family Medicine
DX: R11.0 Nausea (principal); R19.7 Diarrhea, unspecified; E83.42 Hypomagnesemia; Z87.891 Personal history of nicotine dependence
CPT/HCPCS: 36415; 80053; 96360; 99284; 83605; 83735; 85025; 99283

== ENCOUNTER 2024-03-12 15:16 | Outpatient (CLI) | payer OTHER, SELFPAY ==
--- NOTE | 2024-03-12 13:00 | DI.RAD_ITS ---
Exam(s) XR SHOULDER RT COMPLETE 2+V EXAM: XR SHOULDER RT COMPLETE 2+V CLINICAL HISTORY: F/U RIGHT RTSA. TECHNIQUE: 2D digital imaging was performed. COMPARISON: Postop images of 03/01/2024. FINDINGS: 3 views There remain satisfactory position alignment of the components of the recently placed reverse prosthe sis no fracture or loosening evident. However, there is still significant amount of gas in the soft tissues, and given the time since surge ry this brings to mind the possibly of an infectious process such as possible soft tissue abscess. IMPRESSION: Intact reverse prosthesis. Persistent gas in the soft tissues 11 days postop. Correlation with any clinical signs of infection/ soft tissue abscess recommended. Incidentally noted in the peripheral aspect of the field of view of these shoulder images is blunting of the right costophrenic angle indicating a right pleural effusion. Recommend PA and lateral views of the chest. DATA REPOSITORY: RADIATION DOSE DELIVERED:
== END 2024-03-12 15:17 | disposition home or self-care (01) ==
LOC: DIORS 15:17
PROVIDERS: PCP Family Medicine; Visit Provider Student in an Organized Health Care Education/Training Program
DX: Z98.890 Other specified postprocedural states (principal)
CPT/HCPCS: 73030

== ENCOUNTER 2024-05-01 16:01 | Outpatient (CLI) | payer OTHER, SELFPAY ==
--- NOTE | 2024-05-01 08:45 | DI.RAD_ITS ---
Exam(s) XR SHOULDER RT COMPLETE 2+V EXAM: XR SHOULDER RT COMPLETE 2+V CLINICAL HISTORY: F/U RIGHT RTSA. TECHNIQUE: 2D digital imaging was performed. Three images were obtained. Grashey and Y views were o btained. COMPARISON: CR XR SHOULDER RT COMPLETE 2+V from 03/12/2024 FINDINGS: BONES: There are stable post operative changes of a right reverse total shoulder arthroplasty present . No fracture or dislocation. JOINTS: The orthopedic hardware is in good position. No evidence of hardware loosening. SOFT TISSUE: Normal. IMPRESSION: Stable right reverse total shoulder arthroplasty. DATA REPOSITORY: RADIATION DOSE DELIVERED:
== END 2024-05-01 16:02 | disposition home or self-care (01) ==
LOC: DIORS 16:02
PROVIDERS: PCP Family Medicine; Visit Provider Student in an Organized Health Care Education/Training Program
DX: Z96.619 Presence of unspecified artificial shoulder joint (principal); Z47.1 Aftercare following joint replacement surgery
CPT/HCPCS: 73030

== ENCOUNTER 2024-07-09 10:02 | Outpatient (CLI) | payer OTHER, SELFPAY ==
--- NOTE | 2024-07-09 09:00 | DI.RAD_ITS ---
Exam(s) XR SHOULDER RT COMPLETE 2+V EXAM: XR SHOULDER RT COMPLETE 2+V CLINICAL HISTORY: F/U RIGHT RTSA. TECHNIQUE: 2D digital imaging was performed. Three views. COMPARISON: CR XR SHOULDER RT COMPLETE 2+V from 05/01/2024 FINDINGS: BONES: No acute fracture is present. No bony destructive lesion is seen. Stable alignment no reverse shoulder prosthesis. JOINTS: No dislocation present. SOFT TISSUE: Normal. IMPRESSION: Stable alignment of the reverse shoulder prosthesis. DATA REPOSITORY: RADIATION DOSE DELIVERED:
== END 2024-07-09 10:03 | disposition home or self-care (01) ==
LOC: DIORS 10:02
PROVIDERS: PCP Family Medicine; Visit Provider Student in an Organized Health Care Education/Training Program
DX: Z96.619 Presence of unspecified artificial shoulder joint (principal); Z47.1 Aftercare following joint replacement surgery
CPT/HCPCS: 73030

== ENCOUNTER 2024-09-17 11:11 | Outpatient (CLI) | payer OTHER, SELFPAY ==
--- NOTE | 2024-09-17 10:00 | DI.RAD_ITS ---
Exam(s) XR SHOULDER RT COMPLETE 2+V EXAM: XR SHOULDER RT COMPLETE 2+V INDICATION: shoulder pain s/p RTSA. COMPARISON: CR XR SHOULDER RT COMPLETE 2+V from 07/09/2024 TECHNIQUE: 2D digital imaging was performed. Two views. FINDINGS: Stable alignment of shoulder prosthesis. No abnormal surrounding bony lucencies. DATA REPOSITORY: RADIATION DOSE DELIVERED:
== END 2024-09-17 11:12 | disposition home or self-care (01) ==
LOC: DIORS 11:12
PROVIDERS: PCP Family Medicine; Referring Provider Family Medicine; Visit Provider Physician Assistant
DX: Z96.611 Presence of right artificial shoulder joint (principal); Z47.1 Aftercare following joint replacement surgery
CPT/HCPCS: 73030

== ENCOUNTER 2024-12-25 11:45 | Outpatient (CLI) | payer MEDICARE, SELFPAY ==
--- NOTE | 2024-12-25 10:45 | DI.RAD_ITS ---
Exam(s) XR SHOULDER RT COMPLETE 2+V EXAM: XR SHOULDER RT COMPLETE 2+V CLINICAL HISTORY: RIGHT SHOULDER PAIN. TECHNIQUE: 2D digital imaging was performed. Two images were obtained. Grashey, Y and axillary views were obtained. COMPARISON: CR XR SHOULDER RT COMPLETE 2+V from 09/17/2024 FINDINGS: BONES: There are stable post operative changes of a right reverse total shoulder arthroplasty present. No fracture or dislocation. JOINTS: The orthopedic hardware is in good position. No evidence of hardware loosening. SOFT TISSUE: Normal. IMPRESSION: Stable right reverse total shoulder arthroplasty. DATA REPOSITORY: RADIATION DOSE DELIVERED:
== END 2024-12-25 11:46 | disposition home or self-care (01) ==
LOC: DIORS 11:45
PROVIDERS: Visit Provider Student in an Organized Health Care Education/Training Program
DX: Z47.1 Aftercare following joint replacement surgery (principal); Z96.611 Presence of right artificial shoulder joint; M75.21 Bicipital tendinitis, right shoulder
CPT/HCPCS: 99213; 20550; J1010; 73030